=== PATIENT | male | born 1970 | race Caucasian/White ===

== ENCOUNTER → 2016-08-22 | Outpatient (CLI) | payer BC ==
--- NOTE | 2016-08-22 10:21 | XR ---
EXAMINATION TYPE: XR KUB DATE OF EXAM: 08/22/2016 10:15 AM CLINICAL HISTORY: Left flank pain for one week. TECHNIQUE: 2 supine KUB images of the abdomen are obtained COMPARISON: Abdominal x-ray October 27, 2015 FINDINGS: There is stable 2 mm calculus lower pole level left kidney projecting at inferior L2 endpl ate. There is interval clearance of left ureter calculus. No definitive right-sided renal calculus is present oval densities over left sacrum favor phleboliths as are stable. There is overall nonobstructive bowel gas pattern. Sclerotic focus left lateral inferior pelvic ramus is suggestive of benign bone island. IMPRESSION: Stable 2 mm lower pole left renal calculus. Interval clearance or successful treatment of larger left proximal ureter calculus. No definitive right-sided renal calculi.
== END ==
LOC: RADXRMAIN 09:59
PROVIDERS: ATTEND Physician Assistant
DX: N20.0 Calculus of kidney (principal)
CPT/HCPCS: 74000

== ENCOUNTER 2020-04-07 10:14 | Day surgery (SDC) | payer BC ==
[2020-04-06 13:11] VITALS: BMI 40.6
--- NOTE | 2020-04-06 16:21 | P.GSHP ---
History of Present Illness H&P Date: 04/03/20 Chief Complaint: Left flank pain The patient is a 49-year-old white male with a history of calcium oxalate urolithiasis. He has previously undergone ESWL and ureteroscopy with laser lithotripsy. He now presents with left lower back pain, which increases when he lies in the left lateral decubitus position. A computed tomography scan shows a 3 mm left lower pole renal calculus. He understands that this calculus may not be the cause of his pain. He desires treatment and prefers to undergo ureteroscopy with laser lithotripsy rather than ESWL. - Constitutional Constitutional: Denies chills, Denies fever - Gastrointestinal Gastrointestinal: Denies nausea, Denies vomiting - Genitourinary (Male) Genitourinary: Reports flank pain, Reports kidney stones, Denies dysuria, Denies hematuria Past Medical History Past Medical History: Asthma, Hyperlipidemia, Hypertension, Prostate Disorder, Sleep Apnea/CPAP/BIPAP Additional Past Medical History / Comment(s): ASTHMA IN PAST. LT RENAL, URETERAL CALCULI CURRENTLY, POS HX ALSO. BPH. USES C-PAP. History of Any Multi-Drug Resistant Organisms: None Reported Past Surgical History: Hernia Repair, Orthopedic Surgery Additional Past Surgical History / Comment(s): RT KNEECAP SURG. COLONOSCOPY Past Anesthesia/Blood Transfusion Reactions: No Reported Reaction Past Psychological History: Anxiety, Depression Past Alcohol Use History: Occasional Additional Past Alcohol Use History / Comment(s): SMOKED ON/OFF FOR 15 YEARS, <1 PACK PER WEEK Past Drug Use History: None Reported - Past Family History Mother Family Medical History: No Reported History Medications and Allergies Home Medications Medication Instructions Recorded Confirmed Type Atorvastatin [Lipitor] 80 mg PO HS 10/15/15 04/06/20 History ALPRAZolam [Xanax] 0.5 mg PO DAILY PRN 04/06/20 04/06/20 History Aspirin [Adult Low Dose Aspirin EC] 81 mg PO BID 04/06/20 04/06/20 History Carvedilol [Coreg] 12.5 mg PO QAM 04/06/20 04/06/20 History Carvedilol [Coreg] 25 mg PO HS 04/06/20 04/06/20 History Escitalopram [Lexapro] 5 mg PO DAILY 04/06/20 04/06/20 History Ibuprofen [Motrin] 600 mg PO Q8HR PRN 04/06/20 04/06/20 History Multivitamin [Multivitamins Adult 1 each PO DAILY 04/06/20 04/06/20 History Gummies] Rivaroxaban [Xarelto] 2.5 mg PO BID 04/06/20 04/06/20 History Sacubitril/Valsartan [Entresto 97 1 each PO BID 04/06/20 04/06/20 History mg-103 mg Tablet] Spironolactone [Aldactone] 25 mg PO DAILY 04/06/20 04/06/20 History buPROPion HCL [buPROPion HCL SR] 150 mg PO BID 04/06/20 04/06/20 History Allergies Allergy/AdvReac Type Severity Reaction Status Date / Time cyclobenzaprine HCl Allergy Rash/Hives Verified 04/06/20 12:31 [From Flexeril] tadalafil [From Cialis] AdvReac LIGHTHEADED Verified 04/06/20 12:31 NESS Surgical - Exam - General well developed, well nourished, no distress - Neck no masses, trachea midline - Respiratory normal respiratory effort, clear to auscultation - Cardiovascular Rhythm: regular Abnormal Heart Sounds: no systolic murmur, no diastolic murmur, no rub, no S3 Gallop, no S4 Gallop, no click, no other - Abdomen Abdomen: soft, non tender, no guarding, no rigid, no rebound - Psychiatric oriented to time, oriented to person, oriented to place, speech is normal, memory intact Results - Imaging CT scan - abdomen: report reviewed, image reviewed Assessment and Plan (1) Calculus of kidney Status: Acute Code(s): N20.0 - CALCULUS OF KIDNEY SNOMED Code(s): 76815201 Plan: Cystoscopy, left ureteroscopy with Holmium laser lithotripsy and possible stone basketing, left ureteral stent insertion. The procedure has been reviewed in detail with the patient. He is aware of potential risks, which include anesthesia, bleeding, infection, and ureteral injury. It was made clear to him that his pain may persist despite successful removal of the calculus.
[~2020-04-07 10:14] MED LIST: DEXAMETHASONE SOD PHOSPHATE 4 MG/ML 1 ML VIAL IV ONE; HYDROmorphone 0.5 MG/0.5 ML SYRINGE IVP PRN; LACTATED RINGERS 1,000 ML IV SCH; MIDAZOLAM 2 MG/2 ML VIAL IV PRN; ONDANSETRON 4 MG/2 ML VIAL IVP ONE; SCOPOLAMINE 1.5MG/72HR PATCH TRANSDERM ONE
--- NOTE | 2020-04-07 10:36 | XR ---
EXAMINATION TYPE: XR KUB DATE OF EXAM: 04/07/2020 Comparison: 08/22/2016 Clinical History: 49-year-old male with left Renal Calculus, Pre-op Findings: Nonobstructive bowel gas pattern. Mild scattered stool. Left-sided densities measuring 1.2 and 0.5 cm . Some asymmetric degenerative change at the right SI joint. Sclerotic foci left superior ischial marcos us unchanged from 2017 suggesting bone islands. Slight asymmetric sclerosis right iliac bone may be p rojectional. Impression: 1. Possible 1.2 and 0.5 cm left-sided renal calculi. 2. Sclerotic foci within the left ischium and asymmetric sclerosis of the right iliac bone. The scler otic foci appear to have been present in 2017 suggesting benign bone islands. Correlate with PSA valu es given the right iliac bone sclerosis. Nuclear medicine whole-body bone scan can also be considered .
[2020-04-07 10:40] VITALS: TEMP 96.8
[2020-04-07 11:27] LABS: MCH 30.8 pg (25.0-35.0); MCHC 32.7 g/dL (31.0-37.0); MCV 94.2 fL (80.0-100.0); Platelet Count 281 k/uL (150-450); RBC 4.88 m/uL (4.30-5.90); RDW 13.4 % (11.5-15.5); WBC 8.7 k/uL (3.8-10.6)
[2020-04-07 11:35] LABS: African American GFR (CKD) >90 (>60 ml/min/1.73 sqM); Anion Gap 8 mmol/L; Blood Urea Nitrogen 24 mg/dL (9-20); Calcium 9.7 mg/dL (8.4-10.2); Carbon Dioxide 26 mmol/L (22-30); Chloride 101 mmol/L (98-107); Glucose 112 mg/dL (74-99); Non-African American GFR(CKD) 78 (>60 ml/min/1.73 sqM); Sodium 135 mmol/L (137-145)
[2020-04-07] MEDS ORDERED: LIDOCAINE 1% INJ 10MG/ML (20 ML MDV) ONE (13:10)
[2020-04-07] MEDS ORDERED: MIDAZOLAM 2 MG/2 ML VIAL ONE (13:10)
[2020-04-07] MEDS ORDERED: PROPOFOL 10 MG/ML 20 ML VIAL IV ONE (13:10)
[2020-04-07] MEDS ORDERED: ROCURONIUM 10 MG/ML (10 ML VIAL) IV ONE (13:10)
[2020-04-07] MEDS ORDERED: NEOSTIGMINE 1 MG/ML 10 ML VIAL ONE (13:10)
[2020-04-07] MEDS ORDERED: SUCCINYLCHOLINE CHLORIDE VIAL 200 MG/10 ML VIAL IV ONE (13:10)
[2020-04-07] MEDS ORDERED: fentaNYL (PF) 50 MCG/ML 2 ML AMP ONE (13:10)
[2020-04-07] MEDS ORDERED: GLYCOPYRROLATE 0.2 MG/ML 2 ML VIAL ONE (13:10)
[2020-04-07] MEDS ORDERED: LACTATED RINGERS 1,000 ML IV ONE (13:33)
--- NOTE | 2020-04-07 14:27 | FL ---
EXAMINATION TYPE: FL guidance operating room DATE OF EXAM: 04/07/2020 FLUOROSCOPY Fluoroscopy time of 17 seconds was used during left ureteral stone intervention. 1 image/s document/ s the procedure.
[2020-04-07 15:08] VITALS: RESP 18
[2020-04-07 15:22] VITALS: BP 116/62; PULSE 61
[2020-04-07] MEDS ORDERED: IBUPROFEN 200 MG TAB PO ONE (15:52)
--- NOTE | 2020-04-16 14:03 | P.OP ---
Date of Procedure: 04/07/20 Preoperative Diagnosis: Left renal calculus Postoperative Diagnosis: Same Procedure(s) Performed: Cystoscopy, left ureteroscopy with Holmium laser lithotripsy and stone basketing, left ureteral stent insertion Anesthesia: ROLO Surgeon: Claude Hill Estimated Blood Loss (ml): 0 IV fluids (ml): 400 Pathology: other (Calculus fragments) Condition: stable Disposition: PACU Indications for Procedure: The patient is a 49-year-old white male with a history of calcium oxalate urolithiasis. He has previously undergone ESWL and ureteroscopy with laser lithotripsy. He now presents with left lower back pain, which increases when he lies in the left lateral decubitus position. A computed tomography scan shows a 3 mm left lower pole renal calculus. He understands that this calculus may not be the cause of his pain. He desires treatment and prefers to undergo ureteroscopy with laser lithotripsy rather than ESWL. Operative Findings: 3 mm left lower pole renal calculus, fragmented and removed in its entirety. Description of Procedure: The patient was taken to the operating room and placed in the dorsolithotomy position, with legs supported in Malcolm stirrups. The external genitalia was pr epped and draped sterilely. The 30 lens was used to introduce the 21-South African Marrero cystoscopic sheath through the urethra and into the bladder under direct vision. The prostatic urethra showed evidence of mild lateral lobe enlargement. The bladder was examined in its entirety. Both ureteral orifices were normal anatomic location and configuration, and clear urine effluxed from both. No tumors or foreign bodies were seen. A 0.038 inch Glidewire was passed through the cystoscope. The left ureteral orifice was cannulated, and the Glidewire was advanced up to the renal pelvis. The cystoscope was removed, and an 11/13- [place] African ureteral access catheter was passed over the wire, up to the proximal ureter. The flexible ureteroscope was then passed through the ureteral access catheter sheath, and advanced through the proximal ureter under direct vision, up to the left renal pelvis. Each calyx was examined. The calculus was identified within a lower pole calyx. A 1.9-South African nitinol basket was used to grasp the calculus and relocated to the renal pelvis. The 200 micron Holmium laser probe was passed through the ureteroscope, and lithotripsy was performed. After fragmenting the calculus, each calculus fragment was removed using the stone basket. The ureteroscope was then removed. The Glidewire was passed through the ureteral access catheter sheath, which was removed. The Glidewire was backloaded into the cystoscope, which was passed into the bladder. A 26 cm, 4.8-South African double-J ureteral stent was placed over the wire. Proper stent positioning was verified fluoroscopically and endoscopically. The bladder was emptied and the cystoscope removed. The patient tolerated the procedure well and was taken to the recovery room in stable condition. [facility] [place] Report: Procedure Acuity: Elective Stone Size and Location: 3 mm, left lower pole Ureteral Dilation: No Ureteral Access Sheath Used: Yes Stone Sent for Analysis: Yes All Stones/Fragments Were Removed with a Basket: Yes Complications: No Preoperative Antibiotics Given: Yes Stent Placed: Yes If Stent Placed, Was String Left Attached: No If Stent Placed, When is it to be Removed: 1 week Discharge Medications: None
== END 2020-04-07 16:04 | disposition home or self-care (01) ==
LOC: OR 10:14
PROVIDERS: ATTEND Urology
DX: N20.0 Calculus of kidney (principal); Z98.890 Other specified postprocedural states; J45.909 Unspecified asthma, uncomplicated; E78.5 Hyperlipidemia, unspecified; I10 Essential (primary) hypertension; D29.1 Benign neoplasm of prostate; I25.10 Atherosclerotic heart disease of native coronary artery without angina pectoris; Z95.810 Presence of automatic (implantable) cardiac defibrillator; G47.30 Sleep apnea, unspecified; Z99.89 Dependence on other enabling machines and devices; F41.9 Anxiety disorder, unspecified; F32.9 Major depressive disorder, single episode, unspecified; Z95.1 Presence of aortocoronary bypass graft; Z87.891 Personal history of nicotine dependence; Z79.82 Long term (current) use of aspirin; Z79.818 Long term (current) use of other agents affecting estrogen receptors and estrogen levels; Z79.899 Other long term (current) drug therapy; Z88.8 Allergy status to other drugs, medicaments and biological substances
CPT/HCPCS: 80048; 85027; 82365; 74018; 52356; C2625; C1769; J2250; J0330; J1100; J2710; J0690; J2405; J2001; J3010; J2704

== ENCOUNTER → 2020-05-21 | Outpatient (CLI) | payer BC ==
--- NOTE | 2020-05-21 16:48 | US ---
EXAMINATION TYPE: US kidneys/renal and bladder DATE OF EXAM: 05/21/2020 COMPARISON: US 12/01/2015 CLINICAL HISTORY: N20.0 CALCULUS OF KIDNEY. EXAM MEASUREMENTS: Right Kidney: 12.9 x 6.9 x 6.0 cm Left Kidney: 12.8 x 7.2 x 5.7 cm Right Kidney: Mild prominence to renal pelvis Left Kidney: No hydronephrosis or masses seen Bladder: wnl Bilateral Jets seen: Left jet only visualized IMPRESSION: 1. Normal renal ultrasound
== END | disposition home or self-care (01) ==
LOC: RADUSWWP 16:11
PROVIDERS: ATTEND Urology
DX: N20.0 Calculus of kidney (principal); Z88.8 Allergy status to other drugs, medicaments and biological substances
CPT/HCPCS: 76770

== ENCOUNTER 2023-01-28 07:12 | Emergency (ER) | payer BC ==
[2023-01-28 07:40] VITALS: TEMP 97.8
[2023-01-28] MEDS ORDERED: KETOROLAC 15 MG/ML 1 ML VIAL IM STA (08:01)
--- NOTE | 2023-01-28 08:09 | ED ---
Lower Extremity Injury HPI - General Chief Complaint: Extremity Injury, Lower Stated Complaint: L knee popped Time Seen by Provider: 01/28/23 07:51 Source: patient, RN notes reviewed, old records reviewed Mode of arrival: ambulatory Limitations: no limitations - History of Present Illness Initial Comments: Nontoxic-appearing 52-year-old male presents via wheelchair with complaints of left knee pain for a month. Patient states he does have a patella fracture but no trauma. Did see Dr. Borrero on Monday and was directed to buy a knee brace and if continued pain would do an MRI. The past few days he was working going up and down stairs. Today knee gave out and he fell, felt a pop behind the knee. Pain along the left lateral side worse now. MD Complaint: knee injury (left) -: month(s) (1) Type of Injury: unknown Place: home Severity scale (1-10): 8 Improves With: immobilization Worsens With: movement, other (ambulation) Context: fall (today) Associated Symptoms: snap/pop sensation, unable to bear weight Treatments Prior to Arrival: other (brace) - Related Data Home Medications Medication Instructions Recorded Confirmed Atorvastatin [Lipitor] 80 mg PO HS 10/15/15 04/07/20 ALPRAZolam [Xanax] 0.5 mg PO DAILY PRN 04/06/20 04/07/20 Aspirin [Adult Low Dose Aspirin EC] 81 mg PO BID 04/06/20 04/07/20 Escitalopram [Lexapro] 5 mg PO DAILY 04/06/20 04/07/20 Ibuprofen [Motrin] 600 mg PO Q8HR PRN 04/06/20 04/07/20 Multivitamin [Multivitamins Adult 1 each PO DAILY 04/06/20 04/07/20 Gummies] Rivaroxaban [Xarelto] 2.5 mg PO BID 04/06/20 04/07/20 Sacubitril/Valsartan [Entresto 97 1 each PO BID 04/06/20 04/07/20 mg-103 mg Tablet] Spironolactone [Aldactone] 25 mg PO DAILY 04/06/20 04/07/20 buPROPion HCL [buPROPion HCL SR] 150 mg PO BID 04/06/20 04/07/20 carvediloL [Coreg] 12.5 mg PO QAM 04/06/20 04/07/20 carvediloL [Coreg] 25 mg PO HS 04/06/20 04/07/20 Allergies Allergy/AdvReac Type Severity Reaction Status Date / Time cyclobenzaprine HCl Allergy Rash/Hives Verified 01/28/23 07:40 [From Flexeril] tadalafil [From Cialis] AdvReac LIGHTHEADED Verified 01/28/23 07:40 NESS Review of Systems ROS Statement: Those systems with pertinent positive or pertinent negative responses have been documented in the HPI. ROS Other: All systems not noted in ROS Statement are negative. Past Medical History Past Medical History: Asthma, Heart Failure, Hyperlipidemia, Hypertension, Prostate Disorder, Sleep Apnea/CPAP/BIPAP Additional Past Medical History / Comment(s): ASTHMA IN PAST. LT RENAL, URETERAL CALCULI CURRENTLY, POS HX ALSO. BPH. USES C-PAP. CHF History of Any Multi-Drug Resistant Organisms: None Reported Past Surgical History: Coronary Bypass/CABG, Heart Catheterization, Hernia Repair, Orthopedic Surgery, Pacemaker Additional Past Surgical History / Comment(s): RT KNEECAP SURG. COLONOSCOPY. triple bipass. pacemaker with defib Past Anesthesia/Blood Transfusion Reactions: No Reported Reaction Type of Cardiac Device: AICD Device Placement Date:: 03/05/17 Past Psychological History: Anxiety, Depression Smoking Status: Former smoker Past Alcohol Use History: Rare Past Drug Use History: Marijuana - Past Family History Mother Family Medical History: No Reported History General Exam Limitations: no limitations General appearance: alert, in no apparent distress Head exam: Present: atraumatic Eye exam: Present: normal appearance. Absent: scleral icterus, conjunctival injection, periorbital swelling Respiratory exam: Absent: respiratory distress, accessory muscle use Cardiovascular Exam: Present: bradycardia Left Knee exam: Present: tenderness, swelling, pain/laxity with valgus, pain/laxity with varus. Absent: full ROM, abrasion, laceration, ecchymosis, deformity, crepitus, dislocation, erythema, effusion Lower Leg exam: Absent: tenderness, swelling Ankle exam: Absent: tenderness, swelling Foot/Toe exam: Absent: tenderness, swelling Neurovascular tendon exam: Present: no vascular compromise. Absent: abnormal cap refill, extremity cold to touch, pallor, foot drop, peroneal nerve deficit Neurological exam: Present: alert, oriented X3 Psychiatric exam: Present: normal affect, normal mood Skin exam: Present: warm, dry, normal color. Absent: cyanosis, diaphoretic, petechiae, pallor Course Vital Signs 01/28/23 01/28/23 07:31 09:05 Temperature 97.8 F 97.8 F Pulse Rate 53 L 56 L Respiratory 18 19 Rate Blood Pressure 107/67 108/74 O2 Sat by Pulse 98 98 Oximetry Medical Decision Making - Medical Decision Making Was pt. sent in by a medical professional or institution (VANESA Hoyos, MANDARIN TUTOR, urgent care, hospital, or senior care...) When possible be specific @ -No Did you speak to anyone other than the patient for history (EMS, parent, family, police, friend...)? What history was obtained from this source @ -No Did you review nursing and triage notes (agree or disagree)? Why? @ -I reviewed and agree with nursing and triage notes Were old charts reviewed (outside hosp., previous admission, EMS record, old EKG, old radiological studies, urgent care reports/EKG's, senior care records)? Report findings @ -No old charts were reviewed Differential Diagnosis (chest pain, altered mental status, abdominal pain women, abdominal pain men, vaginal bleeding, weakness, fever, dyspnea, syncope, headache, dizziness, GI bleed, back pain, seizure, CVA, palpatations, mental health, musculoskeletal)? @ -Fracture, dislocation, effusion, septic joint, meniscus injury, this is not an all inclusive list EKG interpreted by me (3pts min.). @ -n/a X-rays interpreted by me (1pt min.). @ -yes X-ray of the left knee interpreted by me shows no evidence of dislocation or effusion. Oblique patella fracture noted. CT interpreted by me (1pt min.). @ -None done U/S interpreted by me (1pt. min.). @ -None done What testing was considered but not performed or refused? (CT, X-rays, U/S, labs)? Why? @ -None What meds were considered but not given or refused? Why? @ -None Did you discuss the management of the patient with other professionals (professionals i.e. VANESA Hoyos, MANDARIN TUTOR, lab, RT, psych nurse, social insurance specialist, criminal lawyer, teacher, signals officer, case folder)? Give summary @ -No Was smoking cessation discussed for >3mins.? @ -No Was critical care preformed (if so, how long)? @ -No Were there social determinants of health that impacted care today? How? (Homelessness, low income, unemployed, alcoholism, drug addiction, transportation, low edu. Level, literacy, decrease access to med. care, shelter, rehab)? @ -No Was there de-escalation of care discussed even if they declined (Discuss DNR or withdrawal of care, Hospice)? DNR status @ -No What co-morbidities impacted this encounter? (DM, HTN, Smoking, COPD, CAD, Cancer, CVA, ARF, Chemo, Hep., AIDS, mental health diagnosis, sleep apnea, morbid obesity)? @ -Patient has a history of asthma, heart failure, hypertension, hyperlipidemia, AICD, anxiety, depression Was patient admitted / discharged? Hospital course, mention meds given and route, prescriptions, significant lab abnormalities, going to OR and other pertinent info. @ -Discharged Nontoxic-appearing 52-year-old male presents via wheelchair with complaints of left knee pain for a month. Patient states he does have a patella fracture but no trauma. Did see Dr. Borrero on Monday and was directed to buy a knee brace and if continued pain would do an MRI. The past few days he was working going up and down stairs. Today knee gave out and he fell, felt a pop behind the knee. Pain along the left lateral side worse now. X-ray of the left knee interpreted by me shows no evidence of dislocation or effusion. Oblique patella fracture noted. Radiologist interpretation oblique fracture along the superior lateral aspect of the patella minimally by 4 mm. Trace knee joint effusion which is nonspecific. No additional acute osseous abnormality is seen. Patient was directed to wear his knee brace and use his crutches until seen by Dr. Borrero on Monday. Take the Flomax as prescribed by Dr. Borrero in addition to Tylenol and the Ultram provided in the emergency room. Patient is agreeable to discharge. Case discussed with Dr. Medina Undiagnosed new problem with uncertain prognosis? @ -No Drug Therapy requiring intensive monitoring for toxicity (Heparin, Nitro, Insulin, Cardizem)? @ -No Were any procedures done? @ -No Diagnosis/symptom? @ -Internal derangement left knee, left patella fracture chronic Acute, or Chronic, or Acute on Chronic? @ -Acute on chronic Uncomplicated (without systemic symptoms) or Complicated (systemic symptoms)? @ -Uncomplicated Side effects of treatment? @ -No Exacerbation, Progression, or Severe Exacerbation? @ -No Poses a threat to life or bodily function? How? (Chest pain, [place], VT, pneumonia, PE, COPD, DKA, ARF, appy, cholecystitis, CVA, Diverticulitis, Homicidal, Suicidal, threat to staff... and all critical care pts) @ -No Disposition Clinical Impression: Internal derangement of left knee, Left patella fracture Disposition: HOME SELF-CARE Condition: Good Instructions (If sedation given, give patient instructions): Patellar Fracture (ED), Knee Pain (ED) Additional Instructions: Use crutches, wear brace and follow-up with Dr. Borrero on Monday. Tylenol and diclofenac as prescribed by Dr. Borrero in addition to the Ultram provided today as needed. Is patient prescribed a controlled substance at d/c from ED?: No Referrals: Justin Li MD [Primary Care Provider] - 1-2 days Cheikh Borrero MD [Medical Doctor] - 1-2 days Time of Disposition: 09:07
--- NOTE | 2023-01-28 08:42 | XR ---
EXAMINATION TYPE: XR knee 4V LT DATE OF EXAM: 01/28/2023 COMPARISON: NONE HISTORY: 52-year-old male pain, indicates that he has a patellar fracture, pain after fall TECHNIQUE: 3 views FINDINGS: There is an oblique fracture extending along the superolateral aspect of the patella with 4 mm of separation of the fragments. Mild anterior soft tissue swelling. Extensor mechanism appears in tact. Trace knee joint effusion. A surgical clip is present medially in the soft tissues. Mild degene rative spurring lateral compartment. IMPRESSION: Oblique fracture along the superolateral aspect of the patella minimally by 4 mm. The patie nt indicates that this is a known fracture. Correlate as to age of the injury. There is trace knee adilson int effusion which is nonspecific. No additional acute osseous abnormality is seen.
[2023-01-28] MEDS ORDERED: traMADol 50 MG STARTER PACK 3 TAB BTL PO STA (08:57)
[2023-01-28 09:05] VITALS: BP 108/74; PULSE 56; RESP 19
== END 2023-01-28 09:12 | disposition home or self-care (01) ==
LOC: EC 07:12
DX: S82.002A Unspecified fracture of left patella, initial encounter for closed fracture (principal); M23.92 Unspecified internal derangement of left knee; J45.909 Unspecified asthma, uncomplicated; I50.9 Heart failure, unspecified; E78.5 Hyperlipidemia, unspecified; I11.0 Hypertensive heart disease with heart failure; G47.30 Sleep apnea, unspecified; F12.90 Cannabis use, unspecified, uncomplicated; F41.9 Anxiety disorder, unspecified; F32.A Depression, unspecified; N40.0 Benign prostatic hyperplasia without lower urinary tract symptoms; Z87.891 Personal history of nicotine dependence; Z79.01 Long term (current) use of anticoagulants; Z79.899 Other long term (current) drug therapy; Z88.6 Allergy status to analgesic agent; Z88.8 Allergy status to other drugs, medicaments and biological substances; Z79.82 Long term (current) use of aspirin; Z87.442 Personal history of urinary calculi; Z95.1 Presence of aortocoronary bypass graft; Z95.810 Presence of automatic (implantable) cardiac defibrillator; W19.XXXA Unspecified fall, initial encounter
CPT/HCPCS: 73564; 99283; 96372; J1885